=== PATIENT | female | born 1985 | race African-American/Black ===

== ENCOUNTER 2023-03-10 10:43 | Outpatient (RCR) | payer OTHER ==
[~2023-03-10 10:43] MED LIST: FLEXERIL 1010 MG/TAB PO
== END 2023-03-13 ==
LOC: WSOH
DX: S66.012A Strain of long flexor muscle, fascia and tendon of left thumb at wrist and hand level, initial encounter (principal); Y99.0 Civilian activity done for income or pay; F41.8 Other specified anxiety disorders; E28.2 Polycystic ovarian syndrome; F43.10 Post-traumatic stress disorder, unspecified

== ENCOUNTER 2023-03-10 11:52 | Outpatient (RCR) | payer OTHER | END 2023-03-13 | LOC: WSOH | DX: S33.5XXA Sprain of ligaments of lumbar spine, initial encounter (principal); M25.561 Pain in right knee; S96.911A Strain of unspecified muscle and tendon at ankle and foot level, right foot, initial encounter; W19.XXXA Unspecified fall, initial encounter; Y99.0 Civilian activity done for income or pay; E28.2 Polycystic ovarian syndrome; F41.8 Other specified anxiety disorders; F43.10 Post-traumatic stress disorder, unspecified ==